=== PATIENT | female | born 1985 ===

== ENCOUNTER 2018-10-31 17:22 | Inpatient (IN) ==
[2018-10-31] MEDS ORDERED: Naloxone Inj 0.4 MG/ML Vial IV.PUSH PRN (18:40)
[2018-10-31] MEDS ORDERED: fentaNYL Citrate Inj 100 MCG/2 ML Ampul IV.PUSH PRN ×2 (18:40)
[2018-10-31] MEDS ORDERED: Sod Chloride 0.9% Inj 1,000 ML OTHER PRN (18:40)
[2018-10-31] MEDS ORDERED: Sodium Chlor 0.9% Inj 500 ML IV.SIG PRN (18:40)
[2018-10-31] MEDS ORDERED: Citric Acid/Sodium Citrate Liq 30 ML UDC PO SCH (18:45)
--- NOTE | 2018-10-31 18:56 | P.HPOB ---
History of Present Illness Primary Care Physician: NOT REQUIRED Chief Complaint: induction for oligohydramnios History of Present Illness: 33 yo with iup at 37 w 1d by 7 wk u/s c/w lmp, here for iol. She was seen in the office yesterday and noted to have oligohydramnios on bpp. She additionally has BP above her baseline, systolic 130's, and protein on urine dip. She had normal pih labs 2 weeks ago; she was to repeat pih labs last week but did not repeat them. She denies LACEY/RUQ pain/blurry vision. + FM, neg ctx, vb or lof She is PRe-diabetic and had a normal early 1 hr gct, but failed 1 hr gct in third trimester with a value of 203. She was sent to varnish supervisor/ nuritionist in early second trimester for diabetic education and to initiate blood glucose monitoring. She had intermittent compliance with checking values. After abn one hour, she was sent to diabetic education again. Her most recent growth u/s at 35w3d noted EFW 85%ile, 6 #10oz. She was treated for Chlamydia this . OB: G1 ftsvd at 39 wk, 7 lb 13 oz had GDM and PPD, G2 SAB 09/2017 [employer]: h/o CT PMH: Pre-DM, Anxiety, h/o ppd PSH: denies Fam Hx denies defects, genetic disorders Weeks Gestation:: 37 Para: 1 : 3 - Inpatient Certification I certify that the inpatient services were ordered in accordance with Medicare regulations governing the order. This includes certification that hospital inpatient services are reasonable and necessary and in the case of services not specified as inpatient-only under 42 CFR 419.22(n), that they are appropriately provided as inpatient services in accordance to with the 2-midnight benchmark under 43 CFR 412.3(e) Estimated Total Length of Stay (Days): 3 Plans for Post Hospital Care: Home Review of Systems All other systems reviewed negative except as stated in HPI PMFSH - Travel History Recent Travel in the [place] Within the Last 8 Weeks: No Recent Travel Out of the Country Within the Last 8 Weeks: No - Immunization History Hx Influenza Vaccine This Season: No Medications and Allergies Active Medications: Active Medications Citric Acid/Sodium Citrate (Sodium Citrate/Citric Acid Liq) 30 ml PO HOSEMAN KEVIN Stop: 11/04/18 18:44 Fentanyl Citrate (Fentanyl Inj) 50 mcg IV.PUSH Q1H PRN PRN Reason: Pain Scale 3 - 5 Fentanyl Citrate (Fentanyl Inj) 100 mcg IV.PUSH Q1H PRN PRN Reason: PAIN SCALE 6 TO 10 Lactated Ringer's (Lr 1000 Ml Inj) 1,000 mls @ 125 mls/hr IV.CONT .Q8H KEVIN Lactated Ringer's (Lr 1000 Ml Inj) 1,000 mls @ 3,000 mls/hr IV.SIG UNSCH PRN PRN Reason: compromise or epidural Sodium Chloride (Ns Inj) 500 mls @ 1,000 mls/hr IV.SIG UNSCH PRN PRN Reason: SEE LABEL COMMENTS Oxytocin (Pitocin 30 Units/Ns 500 Ml Premix) 30 units in 500 mls @ 999 mls/hr IV.SIG BOLUS ONE Stop: 10/31/18 19:10 Oxytocin (Pitocin 30 Units/Ns 500 Ml Premix) 30 units in 500 mls @ 1 mls/hr IV.SIG TITRATE PRN; Protocol PRN Reason: For induction of labor Penicillin G Potassium 5,000, (000 unit/ Sodium Chloride) 100 mls @ 200 mls/hr IV.SIG ONCE ONE Stop: 10/31/18 19:09 Sodium Chloride (Ns Inj) 1,000 mls @ 100 mls/hr IV.CONT .Q10H PRN PRN Reason: SEE LABEL COMMENTS Lidocaine HCl (Xylocaine 1% Inj) 0.1 ml I-DERMAL PRN PRN PRN Reason: For IV start Stop: 11/03/18 18:39 Lidocaine HCl (Xylocaine 1% Inj) 10 ml INFILTRATN PRN PRN PRN Reason: For episiotomy repair Stop: 11/02/18 18:39 Mineral Oil (Muri-Lube Oil) 10 ml TOPICAL PRN PRN PRN Reason: PRN perineal massage Miscellaneous Information ([facility] [place] [facility] 1 each OTHER ONCE ONE Stop: 10/31/18 18:41 Misoprostol (Cytotec) 25 mcg VAGINAL ONCE ONE Stop: 10/31/18 18:41 Naloxone HCl (Narcan Inj) 0.1 mg IV.PUSH Q2M PRN PRN Reason: for opiate reversal Sodium Chloride (Ns Flush) 2 ml IV.FLUSH BID KEVIN Sodium Chloride (Ns Flush) 2 ml IV.FLUSH PRN PRN PRN Reason: FLUSH AFTER USING IV ACCESS Allergies Allergy/AdvReac Type Severity Reaction Status Date / Time No Known Allergies Allergy Verified 10/31/18 17:38 Home Medications Medication Instructions Recorded Confirmed Type vit,[id number] 1 tab PO DAILY 10/31/18 10/31/18 History [PNV 29-1] Exam Vital signs: Vital Signs 10/31/18 17:45 10/31/18 18:00 Temperature 98.6 F Pulse Rate 101 H Respiratory Rate 18 Blood Pressure 139/84 Intake & Output 10/30/18 10/31/18 10/31/18 18:59 06:59 18:59 Weight 121.109 kg Other: Weight On Admission 121.109 kg - Constitutional no acute distress - Routine HEENT Exam Head: Present: normocephalic Eye: Present: EOMI ENT: Present: mucous membranes moist - Routine Neck Exam Present: full ROM - Routine Respiratory Exam Absent: accessory muscle use - Routine Cardiovascular Exam Present: RRR - Routine Abdominal Exam Present: soft - Routine Exam Comments: 2-3/50/-3 posterior yesterday in office - Routine Extremities Exam Absent: cyanosis, clubbing Results - Labs CBC & Chem 7: 10/31/18 18:18 10/31/18 18:18 Group B Strep: Positive Caprini VTE Risk Assessment Caprini VTE Risk Assessment: No/Low Risk (score <= 1) Caprini Risk Assessment Model: Point Value = 1 Point Value = 2 Point Value = 3 Point Value = 5 Age 41-60 Minor surgery BMI > 25 kg/m2 Swollen legs Varicose veins or History of unexplained or recurrent spontaneous Oral contraceptives or hormone replacement Sepsis (< 1 month) Serious lung disease, including pneumonia (< 1 month) Abnormal pulmonary function Acute myocardial infarction Congestive heart failure (< 1 month) History of inflammatory bowel disease Medical patient at bed rest Age 61-74 Arthroscopic surgery Major open surgery (> 45 min) Laparoscopic surgery (> 45 min) Malignancy Confined to bed (> 72 hours) Immobilizing plaster cast Central venous access Age >= 75 History of VTE Family history of VTE Factor V Leiden Prothrombin [id number] Lupus anticoagulant Anticardiolipin antibodies Elevated serum homocysteine Heparin-induced thrombocytopenia Other congenital or acquired thrombophilia Stroke (< 1 month) Elective arthroplasty Hip, pelvis, or leg fracture Acute spinal cord injury (< 1 month) Prophylaxis Regimen: Total Risk Factor Score Risk Level Prophylaxis Regimen 0-1 Low Early ambulation 2 Moderate Order ONE of the following: *Sequential Compression Device (SCD) *Heparin 5000 units SQ BID 3-4 Higher Order ONE of the following medications: *Heparin 5000 units SQ TID *Enoxaparin/Lovenox 40 mg SQ daily (WT < 150 kg, CrCl > 30 mL/min) *Enoxaparin/Lovenox 30 mg SQ daily (WT < 150 kg, CrCl > 10-29 mL/min) *Enoxaparin/Lovenox 30 mg SQ BID (WT < 150 kg, CrCl > 30 mL/min) AND/OR *Sequential Compression Device (SCD) 5 or more Highest Order ONE of the following medications: *Heparin 5000 units SQ TID (Preferred with Epidurals) *Enoxaparin/Lovenox 40 mg SQ daily (WT < 150 kg, CrCl > 30 mL/min) *Enoxaparin/Lovenox 30 mg SQ daily (WT < 150 kg, CrCl > 10-29 mL/min) *Enoxaparin/Lovenox 30 mg SQ BID (WT < 150 kg, CrCl > 30 mL/min) AND *Sequential Compression Device (SCD) Assessment and Plan - Diagnosis (1) 37 weeks gestation of Code(s): Z3A.37 - 37 weeks gestation of Status: Acute (2) Prediabetes Code(s): R73.03 - Prediabetes Status: Acute (3) Gestational diabetes Code(s): O24.419 - Gestational diabetes mellitus in , unspecified control Status: Acute (4) Morbid obesity Code(s): E66.01 - Morbid (severe) obesity due to excess calories Status: Acute (5) Oligohydramnios antepartum Code(s): O41.00X0 - Oligohydramnios, unspecified trimester, not applicable or unspecified Status: Acute (6) PIH ( induced hypertension) Code(s): O13.9 - Gestational [-induced] hypertension without significant proteinuria, unspecified trimester Status: Acute - Plan 33 yo P1 with iup at 37w1 d being admitted for iol for oligohydramnios at term. 1) IOL Rosales score 5, will give one dose of miso then start low dose pitocin 2) Prediabetes gdm- intermittent compliance with accucheck during . HgA1C 6.5 in third trimester. 3) Elevated bp - will get pih labs, P:C ratio. 4) CT this 5) Rubella Non-immune 6) H/o PPD -consider starting sertraline in immediate pp period 7) Fetus- male, EFW 7.5-8 lb
[2018-10-31 19:13] LABS: Baso % (Auto) 0.5 % (0.0-2.0); Eos # (Auto) 0.1 th/mm3 (0.0-0.4); Eos % (Auto) 0.6 % (0.0-4.0); Hematocrit 33.2 % (35.0-46.0); Lymph % (Auto) 22.7 % (9.0-44.0); Mean Corpuscular HGB Conc 33.3 % (32.0-36.0); Mean Corpuscular Volume 81.2 fL (80.0-100.0); Mono # (Auto) 0.5 th/mm3 (0.0-0.9); Mono % (Auto) 5.3 % (0.0-8.0); Neut # (Auto) 6.2 th/mm3 (1.8-7.7); Neut % (Auto) 70.9 % (16.0-70.0); Platelet Count 223 th/mm3 (150-450); Red Blood Count 4.09 mil/mm3 (4.00-5.30); Red Cell Distribution Width 15.6 % (11.6-17.2); White Blood Count 8.8 th/mm3 (4.0-11.0)
[2018-10-31 19:21] LABS: Albumin 2.2 g/dL (3.4-5.0); Anion Gap 8 meq/L (5-15); Aspartate Aminotransferase 29 U/L (15-37); Blood Urea Nitrogen 9 mg/dL (7-18); Calcium 8.3 mg/dL (8.5-10.1); Carbon Dioxide 21.6 meq/L (21.0-32.0); Chloride 109 meq/L (98-107); Glomerular Filtration Rate Greater Than 89 mL/min (>89); Glucose,Random 120 mg/dL (74-106); Potassium 3.7 meq/L (3.5-5.1); Sodium 139 meq/L (136-145)
[2018-10-31 19:23] LABS: Alanine Aminotransferase 63 U/L (10-53)
[2018-10-31 19:25] LABS: Alkaline Phosphatase 269 U/L (45-117); Total Protein 6.5 g/dL (6.4-8.2)
[2018-10-31] MEDS ORDERED: Penicillin G Potassium Inj 5,000,000 UNIT in Sodium Chloride 0.9% Inj 100 ML IV.SIG ONE (19:30)
[2018-10-31 20:33] LABS: Bilirubin,Urine Negative (Negative); Clarity,Urine Hazy (Clear); Color,Urine Yellow (Yellw/Straw); Glucose,Urine (UA) Negative (Negative); Leukocyte Esterase,Urine Moderate (Negative); Mucus,Urine Few /lpf (Occasional); Nitrite,Urine Negative (Negative); Specific Gravity,Urine 1.026 (1.002-1.035); Squamous Epithelial Cell,Urine 2 /hpf (0-5)
[2018-10-31 20:37] LABS: Protein/Creatinine Ratio,Urine 0.06 (0.00-0.14); Total Protein,Urine Random 15.9 mg/dL (0-11.8); Urobilinogen,Urine 0.2 mg/dL (Less than 2)
[2018-10-31] MEDS ORDERED: Oxytocin 30 Units/500ml Premix 30 UNITS/500 ML BAG IV.SIG ONE (23:30)
[2018-10-31] MEDS ORDERED: Oxytocin 30 Units/500ml Premix 30 UNITS/500 ML BAG IV.SIG PRN (23:30)
[2018-11-01] MEDS: Penicillin G Potassium Inj 2,500,000 UNIT in Sodium Chlor 0.9% Inj 100 ML IV.SIG SCH ×3 (00:24→08:59)
[2018-11-01] MEDS ORDERED: fentaNYL 2MCG-Bupiv 0.125% Epi 150 ML EPIDURAL ONE (08:28)
--- NOTE | 2018-11-01 09:58 | P.OBLABOR ---
Subjective Interval history: selpt well overnight, min pain from ctx Objective Vital Signs: Vital Signs - 8 hr 11/01/18 02:06 11/01/18 02:08 11/01/18 02:38 Temperature Pulse Rate 81 Respiratory Rate 18 18 Blood Pressure 131/61 11/01/18 02:39 11/01/18 03:09 11/01/18 03:10 Temperature Pulse Rate 80 74 Respiratory Rate 18 Blood Pressure 129/71 149/71 H 11/01/18 03:36 11/01/18 03:37 11/01/18 05:04 Temperature 98.4 F Pulse Rate 79 77 Respiratory Rate 18 18 Blood Pressure 149/75 H 146/85 H 11/01/18 06:37 11/01/18 07:51 11/01/18 07:52 Temperature 97.7 F Pulse Rate 69 88 Respiratory Rate 18 18 Blood Pressure 150/78 H 153/86 H 11/01/18 08:01 11/01/18 08:56 11/01/18 09:05 Temperature Pulse Rate 77 98 H 93 H Respiratory Rate Blood Pressure 153/96 H 159/73 H 158/87 H 11/01/18 09:06 11/01/18 09:11 11/01/18 09:15 Temperature Pulse Rate 87 94 H 89 Respiratory Rate 26 H Blood Pressure 156/82 H 164/90 H 173/86 H 11/01/18 09:16 11/01/18 09:27 Temperature Pulse Rate 92 H 91 H Respiratory Rate Blood Pressure 143/91 H Objective: Pelvic Exam: Cervix: [post] 3/75/-3, cephalic, arom clear Uterine Contractions: [irreg] FHT's: Category: [I] Decels: [-] Patient Started Active Labor: No Medical Induction of Labor: Yes Artificial Rupture of Membrane: Yes (clear) Assessment and Plan - Diagnosis (1) 37 weeks gestation of Code(s): Z3A.37 - 37 weeks gestation of Status: Acute (2) Prediabetes Code(s): R73.03 - Prediabetes Status: Acute (3) Gestational diabetes Code(s): O24.419 - Gestational diabetes mellitus in , unspecified control Status: Acute (4) Morbid obesity Code(s): E66.01 - Morbid (severe) obesity due to excess calories Status: Acute (5) Oligohydramnios antepartum Code(s): O41.00X0 - Oligohydramnios, unspecified trimester, not applicable or unspecified Status: Acute (6) PIH ( induced hypertension) Code(s): O13.9 - Gestational [-induced] hypertension without significant proteinuria, unspecified trimester Status: Acute - Plan 33 yo P1 with iup at 37w2 d admitted for iol for oligohydramnios at term. 1) IOL - s/p miso now on low dose pitocin, arom this am. 2) Prediabetes gdm- intermittent compliance with accucheck during . HgA1C 6.5 in third trimester. Accucheck 120's 3) Elevated bp - will get pih labs with slight elevation in lft, normal P:D ratio. No LACEY blurry vision or ruq pain. 4) CT this 5) Rubella Non-immune 6) H/o PPD -consider starting sertraline in immediate pp period 7) Fetus- male, EFW 7.5-8 lb 8) RH neg blood type in hospital, outside lab B+ result. Will get rhogam eval pp
[2018-11-01] MEDS ORDERED: Lidocaine PF 1% Inj 10 ML Amp ONE (10:00)
[2018-11-01] MEDS ORDERED: fentaNYL Citrate Inj 100 MCG/2 ML Ampul EPIDURAL ONE (10:53)
[2018-11-01] MEDS ORDERED: fentaNYL 2MCG-Bupiv 0.125% Epi 150 ML EPIDURAL PRN (11:00)
[2018-11-01] MEDS ORDERED: Lidocaine 1% Inj 50 ML Vial ONE (11:25)
--- NOTE | 2018-11-01 12:11 | P.OBDELI ---
Weeks Gestation: 37 Patient Started Active Labor: Yes Medical Induction of Labor: Yes Artificial Rupture of Membrane: Yes Anesthesia: Epidural Episiotomy: none Presentation: Occiput anterior Nuchal Cord: None Delayed Cord Clamping (45 sec): No Shoulder Dystocia: Suprapubic pressure given, Germania maneuver done, Wood's screw maneuver done, Other (Patient stopped pushing whe she was , heart tones began to drop. Pt encouraged to push. Tehr ewas passive descent of head from temples to delivery of head. SD maneuvers started. McRobert 's and suprapubic pressure performed by rn and wood's screw maneuver which disloged posterior (left) shoulder then delivery was possible. ) Placenta: Spontaneous delivery, Intact Laceration: 1 deg Repair: Chromic interrupted Estimated blood loss (mL): 200 : Male Infant Male A Infant Delivery Date: 11/01/18 Infant Delivery Time: 11:50 score (1 min): 8 score (5 min): 9
[2018-11-01] MEDS ORDERED: Acetaminophen 325 MG Tablet PO PRN (12:13)
[2018-11-01] MEDS ORDERED: Oxytocin 30 Units/500ml Premix 30 UNITS/500 ML BAG IV.CONT PRN (12:13)
[2018-11-01] MEDS ORDERED: Witch Hazel 50%/Glyderin 12.5% 40 Pad Jar RECTAL PRN (12:13)
[2018-11-01] MEDS ORDERED: Naloxone Inj 0.4 MG/ML Vial IV.PUSH PRN (12:13)
[2018-11-01] MEDS ORDERED: Benzocaine 20% Top Spray 60 ML Can TOPICAL PRN (12:13)
[2018-11-01] MEDS ORDERED: Zolpidem Tartrate 5 MG Tablet PO PRN (12:13)
[2018-11-01] MEDS ORDERED: Bisacodyl 10 MG Supp RECTAL PRN (12:13)
[2018-11-01] MEDS ORDERED: Diphtheria/Tetanus/Pertussis Vaccine Inj 0.5 ML Syringe IM ONE (16:00)
[2018-11-01] MEDS ORDERED: Measles/Mumps/Rubella Vaccine Inj 0.5 ML Vial SQ ONE (16:00)
[2018-11-01] MEDS ORDERED: Influenza (Quadrivalent) Vaccine 0.5 ML Syringe IM ONE (22:30)
[2018-11-01] MEDS: Senna/Docusate Sodium 8.6/50 MG Tablet PO SCH (22:42)
--- NOTE | 2018-11-02 07:57 | P.PNOB ---
Subjective Post day: 1 Interval history: Doing well Pain is controlled Baby is good Tolerating diet well Objective Vital Signs/I&O: Vital Signs 11/01/18 08:01 11/01/18 08:56 11/01/18 09:05 Temperature Pulse Rate 77 98 H 93 H Respiratory Rate Blood Pressure 153/96 H 159/73 H 158/87 H 11/01/18 09:06 11/01/18 09:11 11/01/18 09:15 Temperature Pulse Rate 87 94 H 89 Respiratory Rate 26 H Blood Pressure 156/82 H 164/90 H 173/86 H 11/01/18 09:16 11/01/18 09:27 11/01/18 09:40 Temperature Pulse Rate 92 H 91 H 94 H Respiratory Rate Blood Pressure 143/91 H 149/69 H 11/01/18 10:00 11/01/18 10:01 11/01/18 10:16 Temperature 97.8 F Pulse Rate 89 87 Respiratory Rate 20 Blood Pressure 134/70 157/90 H 11/01/18 10:40 11/01/18 10:55 11/01/18 11:10 Temperature Pulse Rate 100 H 104 H 84 Respiratory Rate Blood Pressure 168/78 H 105/60 117/72 11/01/18 11:15 11/01/18 11:55 11/01/18 12:25 Temperature 97.8 F Pulse Rate 90 85 Respiratory Rate 20 18 Blood Pressure 138/64 123/77 11/01/18 12:46 11/01/18 13:31 11/01/18 14:21 Temperature Pulse Rate 112 H 85 68 Respiratory Rate Blood Pressure 120/100 H 134/63 126/70 11/01/18 14:40 11/01/18 20:00 Temperature 98.1 F 97.6 F Pulse Rate 73 84 Respiratory Rate 20 20 Blood Pressure 147/78 H 152/76 H Result Diagrams: 10/31/18 18:18 10/31/18 18:18 Objective Remarks: GENERAL: Well-nourished, well-developed patient. CARDIOVASCULAR: Regular rate and rhythm without murmurs, gallops, or rubs. RESPIRATORY: Breath sounds equal bilaterally. No accessory muscle use. ABDOMEN/GI: Abdomen soft, non-tender. Fundus: Firm, non-tender at umbilicus. GENITOURINARY: Light to moderate bleeding. EXTREMITIES: No cyanosis or edema, non-tender, without signs of DVT. Medications and IVs: Active Medications Acetaminophen (Tylenol) 650 mg PO Q4H PRN PRN Reason: PAIN SCALE 1 TO 2 Al Hydroxide/Mg Hydroxide (Milk Of Magnesia Liq) 30 ml PO Q12H PRN PRN Reason: Mild Constipation Benzocaine (Americaine 20% [place]) 1 spray TOPICAL Q4H PRN PRN Reason: For Perineum Discomfort Bisacodyl (Dulcolax Supp) 10 mg RECTAL DAILY PRN PRN Reason: SEVERE CONSITIPATION Oxytocin (Pitocin 30 Units/Ns 500 Ml Premix) 30 units in 500 mls @ 100 mls/hr IV.CONT UNSCH PRN PRN Reason: Heavy bleeding Ibuprofen (Motrin) 800 mg PO Q8H PRN PRN Reason: For Cramping Last Admin: 11/01/18 22:42 Dose: 800 mg Lactulose (Lactulose Liq) 30 ml PO DAILY PRN PRN Reason: SEVERE CONSITIPATION Naloxone HCl (Narcan Inj) 0.1 mg IV.PUSH Q2M PRN PRN Reason: for opiate reversal Ondansetron HCl (Zofran Odt) 4 mg PO Q6H PRN PRN Reason: NAUSEA OR VOMITING Oxycodone/Acetaminophen (Percocet 5/325 Mg) 1 tab PO Q4H PRN PRN Reason: PAIN SCALE 3 TO 5 Senna/Docusate Sodium (Sofya-Colace) 1 tab PO BID [facility] Last Admin: 11/01/18 22:42 Dose: 1 tab Sennosides (Senokot) 17.2 mg PO Q12H PRN PRN Reason: Moderate Constipation Sodium Chloride (Ns Flush) 2 ml IV.FLUSH PRN PRN PRN Reason: FLUSH AFTER USING IV ACCESS Sodium Chloride (Ns Flush) 2 ml IV.FLUSH BID [facility] Last Admin: 11/01/18 22:43 Dose: 2 ml Witch Camila/Glycerin (Tucks Pads) 1 applicatio RECTAL QID PRN PRN Reason: HEMORRHOIDS Zolpidem Tartrate (Ambien) 5 mg PO HS PRN PRN Reason: SLEEP Assessment and Plan - Plan PPD #1 Doing well Home soon Check for DM at PP visit.
[2018-11-02] MEDS: Senna/Docusate Sodium 8.6/50 MG Tablet PO SCH ×2 (10:09→21:05)
[2018-11-03] MEDS: Senna/Docusate Sodium 8.6/50 MG Tablet PO SCH (10:26)
--- NOTE | 2018-11-03 13:20 | P.PNOB ---
Subjective Post day: 2 Interval history: Doing well Baby is good Bleeding is normal Pain is well controlled Objective Vital Signs/I&O: Vital Signs 11/02/18 20:00 11/02/18 20:56 11/03/18 08:30 Temperature 98.0 F 98.0 F 97.9 F Pulse Rate 64 64 62 Respiratory Rate 18 18 16 Blood Pressure 138/67 138/67 146/89 H Intake & Output 11/02/18 11/03/18 11/03/18 18:59 06:59 18:59 Intake Total Balance Intake: Intake (Blood Product) Amt Rho(D) Immune Globulin Unit [id number] Result Diagrams: 10/31/18 18:18 10/31/18 18:18 Objective Remarks: GENERAL: Well-nourished, well-developed patient. CARDIOVASCULAR: Regular rate and rhythm without murmurs, gallops, or rubs. RESPIRATORY: Breath sounds equal bilaterally. No accessory muscle use. ABDOMEN/GI: Abdomen soft, non-tender. Fundus: Firm, non-tender at umbilicus. GENITOURINARY: Light to moderate bleeding. EXTREMITIES: No cyanosis or edema, non-tender, without signs of DVT. Medications and IVs: Active Medications Acetaminophen (Tylenol) 650 mg PO Q4H PRN PRN Reason: PAIN SCALE 1 TO 2 Al Hydroxide/Mg Hydroxide (Milk Of Magnesia Liq) 30 ml PO Q12H PRN PRN Reason: Mild Constipation Benzocaine (Americaine 20% [place]) 1 spray TOPICAL Q4H PRN PRN Reason: For Perineum Discomfort Bisacodyl (Dulcolax Supp) 10 mg RECTAL DAILY PRN PRN Reason: SEVERE CONSITIPATION Oxytocin (Pitocin 30 Units/Ns 500 Ml Premix) 30 units in 500 mls @ 100 mls/hr IV.CONT UNSCH PRN PRN Reason: Heavy bleeding Ibuprofen (Motrin) 800 mg PO Q8H PRN PRN Reason: For Cramping Last Admin: 11/03/18 10:27 Dose: 800 mg Lactulose (Lactulose Liq) 30 ml PO DAILY PRN PRN Reason: SEVERE CONSITIPATION Naloxone HCl (Narcan Inj) 0.1 mg IV.PUSH Q2M PRN PRN Reason: for opiate reversal Ondansetron HCl (Zofran Odt) 4 mg PO Q6H PRN PRN Reason: NAUSEA OR VOMITING Oxycodone/Acetaminophen (Percocet 5/325 Mg) 1 tab PO Q4H PRN PRN Reason: PAIN SCALE 3 TO 5 Senna/Docusate Sodium (Sofya-Colace) 1 tab PO BID [facility] Last Admin: 11/03/18 10:26 Dose: 1 tab Sennosides (Senokot) 17.2 mg PO Q12H PRN PRN Reason: Moderate Constipation Sodium Chloride (Ns Flush) 2 ml IV.FLUSH PRN PRN PRN Reason: FLUSH AFTER USING IV ACCESS Sodium Chloride (Ns Flush) 2 ml IV.FLUSH BID [facility] Last Admin: 11/03/18 10:27 Dose: Not Given Witch Camila/Glycerin (Tucks Pads) 1 applicatio RECTAL QID PRN PRN Reason: HEMORRHOIDS Zolpidem Tartrate (Ambien) 5 mg PO HS PRN PRN Reason: SLEEP Assessment and Plan - Plan PPD #2 Doing well Home soon Check for DM at PP visit.
== END 2018-11-03 15:00 | disposition home or self-care (01) ==
LOC: H2E 17:22 → H1EA 11-01 14:37
PROVIDERS: ADMIT Obstetrics & Gynecology; ATTEND Obstetrics & Gynecology